=== PATIENT | male | born 1975 | race Hispanic/Latino ===

== ENCOUNTER 2024-05-31 16:00 | Outpatient (CLI) | payer OTHER | END 2024-05-31 16:01 | disposition home or self-care (01) | LOC: CSHSLEEP 16:00 | PROVIDERS: ATTEND Family Medicine | DX: G47.33 Obstructive sleep apnea (adult) (pediatric) (principal); R53.83 Other fatigue; R51.9 Headache, unspecified; R41.9 Unspecified symptoms and signs involving cognitive functions and awareness | CPT/HCPCS: 95800 ==

== ENCOUNTER 2024-08-22 07:30 | Outpatient (CLI) | payer OTHER | END 2024-08-22 07:31 | disposition home or self-care (01) | LOC: CSHCT 07:30 | PROVIDERS: ATTEND Family Medicine | DX: R31.29 Other microscopic hematuria (principal); N20.0 Calculus of kidney; K59.00 Constipation, unspecified | CPT/HCPCS: 74178 ==

== ENCOUNTER 2024-09-08 08:58 | Outpatient (CLI) | payer OTHER | END 2024-09-08 08:59 | disposition home or self-care (01) | LOC: CSHSLEEP 08:58 | PROVIDERS: ATTEND Family Medicine | DX: G47.33 Obstructive sleep apnea (adult) (pediatric) (principal); R53.83 Other fatigue; R51.9 Headache, unspecified; R06.83 Snoring; G31.84 Mild cognitive impairment of uncertain or unknown etiology | CPT/HCPCS: 95811 ==